=== PATIENT | female | born 1980 | race Caucasian/White ===

== ENCOUNTER 2016-06-13 14:33 | Emergency (ER) | payer OTHER ==
[2016-06-13 14:48] VITALS: TEMP 99.1
--- NOTE | 2016-06-13 14:57 | EDPHY ---
H & P Stated Complaint: 2x fall this AM after getting up to bathroom, head lac/ swelling Time Seen by Provider: 06/13/16 14:56 HPI/ROS: CHIEF COMPLAINT: Syncope last night, minor head trauma HISTORY OF PRESENT ILLNESS: The patient presents to the ED after she experienced an episode of syncope last night. The patient reportedly had a syncopal episode while walking to the bathroom. She reported she had been using marijuana and had approximately 5-6 drinks prior to falling. The patient did sustain a small contusion to her forehead. She currently denies any headache, numbness or weakness. She has no complaints of neck pain, chest pain , back pain, abdominal pain, pleuritic chest pain, palpitations or additional medical complaints. She did have a history of syncope x1 in February of last year. She has not had any significant medical problem since that time. REVIEW OF SYSTEMS: A comprehensive 10 point review of systems is otherwise negative aside from elements mentioned in the history of present illness. Source: Patient Exam Limitations: No limitations - Personal History LMP (Females 10-55): 1-7 Days Ago Current Tetanus/Diphtheria Vaccine: Unsure Current Tetanus Diphtheria and Acellular Pertussis (TDAP): Unsure - Medical/Surgical History Hx Asthma: No Hx Chronic Respiratory Disease: No Hx Diabetes: No Hx Cardiac Disease: No Hx Renal Disease: No Hx Cirrhosis: No Hx Alcoholism: No Hx HIV/AIDS: No Hx Splenectomy or Spleen Trauma: No Other PMH: L ACL surgery - Social History Smoking Status: Never smoked - Physical Exam Exam: General Appearance: Alert, no distress Head: Small ecchymosis to forehead with superficial nonsuturable laceration less than 1 cm in length Eyes: Pupils equal, round, reactive ENT, Mouth: No hemotympanum, no oral trauma Neck: Nontender, trachea midline, cleared via nexus criteria Respiratory: No chest wall tender, subcutaneous air, lungs clear bilaterally Cardiovascular: Regular rate and rhythm, no murmur appreciated Abdomen: Abdomen is soft and nontender, pelvis stable Skin: No lacerations, No abrasion Back: No midline T/L/S pain Extremities: Nontender, full range of motion Constitutional: Initial Vital Signs Temperature (C) 37.3 C 06/13/16 14:46 Heart Rate 107 H 06/13/16 14:46 Respiratory Rate 18 06/13/16 14:46 Blood Pressure 131/100 H 06/13/16 14:46 O2 Sat (%) 96 06/13/16 14:46 O2 Delivery Mode Room Air Allergies/Adverse Reactions: No Known Allergies Allergy (Unverified 06/13/16 14:45) Home Medications: Medication Instructions Recorded Microgestin 06/13/16 Medical Decision Making - Diagnostics EKG Interpretation: EKG: Complete interpretation has been separately recorded in the [employer] archive. Summary impression: Sinus rhythm, rate 87 ED Course/Re-evaluation: The patient presents to the ED after a likely vasovagal episode. She has a mild contusion to her forehead but no hematoma or clinical findings suggestive of a skull fracture. The patient is noted to be neurologically intact. I do not feel she requires a CT scan of her brain. She has no clinical findings suggestive of ICH or concussion. The patient's EKG is within normal limits. She has no evidence of a significant metabolic abnormality or arrhythmia. The patient is completely asymptomatic at this point time. She presents to the ED after a likely vasovagal episode in the setting of alcohol and marijuana use. I do feel that she can safely be discharged home. I appreciate no murmur on exam. She has been instructed to follow up with Cardiology for any recurrent episodes of syncope. She is given customary return precautions. The patient was placed on a muskrat trapper throughout her stay in the ED and had no evidence of an arrhythmia. Differential Diagnosis: Differential diagnosis considered includes anemia, vasovagal episode, arrhythmia , ectopic , metabolic abnormality, dehydration - Data Points Laboratory Results: Laboratory Results 06/13/16 15:10 06/13/16 15:10 06/13/16 15:10 WBC 13.46 H 10^3/uL (3.80-9.50) RBC 4.41 10^6/uL (4.18-5.33) Hgb 14.0 g/dL (12.6-16.3) Hct 41.1 % (38.0-47.0) MCV 93.2 fL (81.5-99.8) MCH 31.7 pg (27.9-34.1) MCHC 34.1 g/dL (32.4-36.7) RDW 12.4 % (11.5-15.2) Plt Count 391 10^3/uL (150-400) MPV 10.4 fL (8.7-11.7) Neut % (Auto) 73.6 % (39.3-74.2) Lymph % (Auto) 20.4 % (15.0-45.0) [place]clain % (Auto) 5.0 % (4.5-13.0) Eos % (Auto) 0.2 L % (0.6-7.6) Baso % (Auto) 0.5 % (0.3-1.7) Nucleat RBC Rel Count 0.0 % (0.0-0.2) Absolute Neuts (auto) 9.90 H 10^3/uL (1.70-6.50) Absolute Lymphs (auto) 2.75 10^3/uL (1.00-3.00) Absolute Monos (auto) 0.67 10^3/uL (0.30-0.80) Absolute Eos (auto) 0.03 10^3/uL (0.03-0.40) Absolute Basos (auto) 0.07 10^3/uL (0.02-0.10) Absolute Nucleated RBC 0.00 10^3/uL (0-0.01) Immature Gran % 0.3 % (0.0-1.1) Immature Gran # 0.04 10^3/uL (0.00-0.10) Sodium 142 mEq/L (134-144) Potassium 4.1 mEq/L (3.5-5.2) Chloride 105 mEq/L (97-110) Carbon Dioxide 22 mEq/l (22-31) Anion Gap 15 mEq/L (8-16) BUN 10 mg/dL (7-23) Creatinine 0.7 mg/dL (0.6-1.0) Estimated GFR > 60 Glucose 109 H mg/dL (70-100) Calcium 9.3 mg/dL (8.5-10.4) Beta HCG, Qual NEGATIVE Medications Given: Discontinued Medications Sodium Chloride (Ns) 1,000 mls @ 0 mls/hr IV ONCE ONE PRN Reason: Wide Open Stop: 06/13/16 15:30 Last Admin: 06/13/16 15:52 Dose: 1,000 mls Departure - Departure Disposition: Home, Routine, Self-Care Clinical Impression: Vasovagal episode, Traumatic ecchymosis of forehead Condition: Good Instructions: Syncope (ED) Additional Instructions: 1. The testing done in the emergency department today demonstrates no significant cardiac, metabolic or other worrisome finding. 2. Please return to the ED for any chest pain, shortness of breath or other concerns. 3. Please try and increase her fluid intake. 4. If you do continued to have problems with lightheadedness and passing out I do recommend following up with the smutter you have been referred to. Referrals: Romain Covington MD [Medical Doctor] - As per Instructions
--- NOTE | 2016-06-13 15:07 | CPEKG ---
Heart Rate: 87 RR Interval: 690 P-R Interval: 156 QRSD Interval: 72 QT Interval: 352 QTC Interval: 424 P Lake: 55 QRS Lake: -32 T [place]: 9 EKG Severity - BORDERLINE ECG - EKG Impression: SINUS RHYTHM EKG Impression: LEFT AXIS DEVIATION Electronically Signed By: Rocky Ballard 13-Jun-2016 18:03:45
[2016-06-13] MEDS ORDERED: NS 1,000 ML IV ONE (15:29)
[2016-06-13 15:37] LABS: % IMMATURE GRANULYOCYTES 0.3 % (0.0-1.1); ABSOLUTE IMMATURE GRANULOCYTES 0.04 10^3/uL (0.00-0.10); ADD DIFF? NO; ADD MORPH? NO; ADD SCAN? NO; ATYPICAL LYMPHOCYTE FLAG 10 (0-99); FRAGMENT RBC FLAG 0 (0-99); HEMATOCRIT 41.1 % (38.0-47.0); LEFT SHIFT FLG 0 (0-99); LIPEMIA HEMOLYSIS FLAG 90 (0-99); MEAN CELL HEMOGLOBIN 31.7 pg (27.9-34.1); MEAN CELL HEMOGLOBIN CONCENTR. 34.1 g/dL (32.4-36.7); MEAN CELL VOLUME 93.2 fL (81.5-99.8); MEAN PLATELET VOLUME 10.4 fL (8.7-11.7); PLATELET CLUMPS FLAG 0 (0-99); PLATELET COUNT 391 10^3/uL (150-400); RED BLOOD CELL COUNT 4.41 10^6/uL (4.18-5.33); RED CELL DISTRIBUTION WIDTH 12.4 % (11.5-15.2)
[2016-06-13 15:59] LABS: ANION GAP 15 mEq/L (8-16); CALCIUM 9.3 mg/dL (8.5-10.4); CARBON DIOXIDE 22 mEq/l (22-31); CHLORIDE 105 mEq/L (97-110); CREATININE 0.7 mg/dL (0.6-1.0); GLOMERULAR FILTRATION RATE > 60; GLUCOSE 109 mg/dL (70-100); POTASSIUM 4.1 mEq/L (3.5-5.2); SODIUM 142 mEq/L (134-144)
[2016-06-13 16:28] VITALS: RESP 16
[2016-06-13 16:40] VITALS: BP 115/88; PULSE 73; O2SAT 96
== END 2016-06-13 16:39 | disposition home or self-care (01) ==
DX: S00.83XA Contusion of other part of head, initial encounter (principal); R55 Syncope and collapse; W18.39XA Other fall on same level, initial encounter; Y93.89 Activity, other specified